=== PATIENT | female | born 1995 | race Caucasian/White ===

== ENCOUNTER 2017-04-11 12:09 | Outpatient (CLI) | payer SELFPAY ==
[~2017-04-11] VITALS: Ht 144.8 cm; Wt 62.3 kg
[2017-04-11 12:14] VITALS: Ht 144.8 cm; Wt 62.3 kg
[2017-04-11] MEDS ORDERED: PREN1COM10 PO (12:16)
--- NOTE | 2017-04-11 14:18 | RADRPT ---
PROCEDURE: Obstetrical ultrasound CLINICAL INDICATION: Abdominal pain, abruption TECHNIQUE: Multiple sonographic images of the pelvis were obtained. The images were reviewed on a PACS workstation. COMPARISON: None FINDINGS: The cervix is not well visualized. There is a single viable intrauterine gestation. Cardiac activity is present with 143 beats per minute. There is a breech presentation. The placenta is anterior and fundal in location. There is no evidence for an abruption or placenta p revia. There is a normal amount of amniotic fluid with a maximum vertical pocket of amniotic fluid measurin g 4.3 cm. Measurements were made in order to determine age. The results are as follows (cm): BPD =4.95 HC =18.73 AC =16.41 FL =3.55 Estimated gestational age by ultrasound of approximately 21 weeks, 1 day. The estimated date of delivery by ultrasound is 08/21/2017. Estimated gestational age by LMP of approximately 25 weeks, 5 days. The estimated date of delivery by LMP is 07/20/2017. EFW = 414 grams (below the 3rd percentile) IMPRESSION: Single viable intrauterine gestation of approximately 21 weeks, 1 day . The estimated date of delivery is 08/21/2017 . Dating by ultrasound is not consistent with dating by LMP. Breech presentation. Normal amount of amniotic fluid. Estimated weight is 414 g. Correlation for intrauterine growth retardation is recommended. RPTAT: EE Physician Saskia Date Time Electronically viewed and signed by Physician Saskia on 04/11/2017 14:18 /
--- NOTE | 2017-04-11 16:12 | TRIAGE ---
OB Triage Datetime Report Generated by CPN: 04/11/2017 16:11 Datetime: 04/11/2017 14:14 Vaginal Exam Pool: Negative Nitrazine: Negative Datetime: 04/11/2017 13:24 EGA: 22.1 Datetime: 04/11/2017 13:23 Labor Evaluation Frequency: OCC Monitor Mode: External Quality: Mild Pattern: Normal: <= 5 Contractions in 10 Minutes Resting Tone [place]: Relaxed Heart Rate FHR Baseline Rate: 150 Monitor Mode: External US FHR Baseline Changes: No Baseline Change Variability: Moderate 6-25 bpm Accelerations: 15X15 Decelerations: None Category: Category I Pain Assessment Pain Scale: 2 Pain Presence: Intermittent Pain Type: Cramping Pain Location: Abdomen Pain Relief Measures: Comfort Measures Datetime: 04/11/2017 13:21 Time of Arrival: 04/11/2017 11:23 Arrived By: Ambulance Arrived From: Other Hospital Chief Complaint: FELL ON SUNDAY ON THE FLOOR, ABD PAIN Movement: Present Contractions: Irregular Time Contractions Began: 04/11/2017 03:00 Rupture of Membranes: Unsure Vaginal Bleeding: None Vaginal Discharge: Present Recent Sexual Intercouse: Denies Abdominal Trauma: Fall Patient Complaints: Contractions; Cramping Additional Patient Complaints: OB U/S, ROM PLUS, NITRAZINE, TYPE AND SCREEN, Time Provider Notified: 04/11/2017 13:00 Provider Notified: ARDALAN Datetime: 04/11/2017 12:34 Stage of : OB Triage Assessment Type: Triage Maternal Assessment Level of Consciousness: Fully Conscious DTR's/Clonus: DTRs 2+; No Clonus Headache: Denies Blurred Vision: No Respiratory Effort: Unlabored; Regular Rhythm; Equal Expansion Breath Sounds, Left: Clear and Equal Breath Sounds, Right: Clear and Equal Nausea/Vomiting: Denies RUQ Epigastric Pain: Denies Lower Extremities Edema: None Degree: None Upper Extremities Edema: None Degree: None Facial Edema: None Fall Risk Assessment History of Falling: (0) No Secondary Diagnosis: (0) No Ambulatory Aid: (0) Bedrest/Nurse Assist IV Therapy: (0) No Gait: (0) Normal/Bedrest/Immobile Mental Status: (0) Oriented to Own Ability Fall Score: 0 Fall Risk Score Definition: No Risk: No action required Labor Evaluation Frequency: OCC Monitor Mode: External Quality: Mild Pattern: Normal: <= 5 Contractions in 10 Minutes Resting Tone [place]: Relaxed Heart Rate FHR Baseline Rate: 155 Monitor Mode: External US FHR Baseline Changes: No Baseline Change Variability: Moderate 6-25 bpm Accelerations: 15X15 Decelerations: None Category: Category I Pain Assessment Pain Scale: 4 Pain Presence: Intermittent Pain Type: Cramping Pain Location: Abdomen Pain Relief Measures: Comfort Measures
--- NOTE | 2017-04-11 18:31 | PN ---
Triage Information Date/Time April 11, 2017 Reason for visit: leaking of fluid Weeks of Gestation 22 weeks and 1 day by her stated dates consistent with ultrasound today in triage /Para 2 para 1 Diabetes: none Hypertention: none Additional information 21-year-old with IUP at 22 weeks and 1 day by her stated dates consistent with ultrasound today in triage presents with complaint of leaking of fluid today. She also reports that she had been 21-year-old with IUP at 22 weeks and 1 day by her stated dates consistent with ultrasound today presented with complaint of leaking of fluid. Patient had her care at outside of this facility. Was seen in [facility] and was transferred here for further evaluation. Patient also reports that she fell 4 days ago. Denies any vaginal bleeding, uterine contractions or decreased movement or any other complaints. Noted the patient is tearful when went to the bed side, Upon questioning patient reports that she is upset since the father of the baby is no longer with him. She lives with her mother. She reports that lately she feels tired. Does not want to do anything. Reports good appetite. Denies any suicidal or homicidal ideation or plan. Reports had a history of depression in the past and had been hospitalized in the past twice however denies any currently suicidal ideation or homicidal ideation. She reports that she has discussed this with her OB and declined to take any medication. Currently she does not want to take any medication for depressive symptoms. She reports that she has good support and is aware of the signs and symptoms and when to report if her symptoms getting worse. Objective Heart Rate: 130's Contractions: None Exam General appearance: Alert and oriented 4. Patient is here for when went to the bedside. Abdomen: Soft, gravid, no tenderness, no rebound tenderness, no guarding or rigidity Sterile speculum examination negative pooling , negative nitrazine, negative ROM Ultrasound normal amniotic fluid. Ultrasound with no evidence of previa or abruption Estimated weight and also some 414 g Results/Medications Results 24 hrs Laboratory Tests Test 04/11/17 14:10 Membranes Rupture NEGATIVE Imaging Results PROCEDURE: Obstetrical ultrasound CLINICAL INDICATION: Abdominal pain, abruption TECHNIQUE: Multiple sonographic images of the pelvis were obtained. The images were reviewed on a PACS workstation. COMPARISON: None FINDINGS: The cervix is not well visualized. There is a single viable intrauterine gestation. Cardiac activity is present with 143 beats per minute. There is a breech presentation. The placenta is anterior and fundal in location. There is no evidence for an abruption or placenta previa. There is a normal amount of amniotic fluid with a maximum vertical pocket of amniotic fluid measuring 4.3 cm. Measurements were made in order to determine age. The results are as follows (cm): BPD = 4.95 HC = 18.73 AC = 16.41 FL = 3.55 Estimated gestational age by ultrasound of approximately 21 weeks, 1 day. The estimated date of delivery by ultrasound is 08/21/2017. Estimated gestational age by LMP of approximately 25 weeks, 5 days. The estimated date of delivery by LMP is 07/20/2017. EFW = 414 grams (below the 3rd percentile) IMPRESSION: Single viable intrauterine gestation of approximately 21 weeks, 1 day . The estimated date of delivery is 08/21/2017 . Dating by ultrasound is not consistent with dating by LMP. Breech presentation. Normal amount of amniotic fluid. Estimated weight is 414 g. Correlation for intrauterine growth retardation is recommended. RPTAT: EE Physician Saskia Date Time Electronically viewed and signed by Physician Saskia on 04/11/2017 14:18 RA/ CC: PB ROCK MD Disposition: Discharge Assessment/Plan IUP at 22 weeks and 1 day by her stated dates consistent with ultrasound today No evidence of PPROM or labor Status post fall 4 days ago, no evidence of abruption Major depressive symptoms. Denies any suicidal ideation or homicidal ideation Patient has a history of depression in the past status post hospitalization twice. Patient declined to take any medication at this time she was given 1-800 suicide Hot line to report any change or worsening of her symptoms or any SI/ HI. She was advised to go to ED if she has any of above symptoms. She was advised to call Ob office for an appt tomorrow FAYE strict PTL precaution and FKC discussed with the patient. Patient verbalized understanding all above discussion PB ROCK MD Apr 11, 2017 18:31
== END 2017-04-11 16:33 | disposition home or self-care (01) ==
LOC: EDBD 12:09 → OBT 12:09 → L-D 12:09 → MERGE 12:09 → OBT 16:33
PROVIDERS: ATTEND Obstetrics & Gynecology Obstetrics
DX: O26.892 Other specified pregnancy related conditions, second trimester (principal); Z3A.22 22 weeks gestation of pregnancy; R10.9 Unspecified abdominal pain
CPT/HCPCS: 76815; 84112; 86850; 86900; 86901; G0463